=== PATIENT | male | born 2000 | race African-American/Black ===

== ENCOUNTER 2022-09-13 18:40 | Emergency (ER) | payer OTHER ==
[2022-09-13] MEDS ORDERED: Dicyclomine 20 MG TAB ONE (22:15)
== END 2022-09-13 22:23 | disposition home or self-care (01) ==
LOC: ERS 18:40
DX: R19.7 Diarrhea, unspecified (principal); F17.290 Nicotine dependence, other tobacco product, uncomplicated
CPT/HCPCS: 99283